=== PATIENT | female | born 1950 | race Caucasian/White ===

== ENCOUNTER 2016-06-28 10:57 | Emergency (ER) | payer BC ==
[2016-06-28 09:26] LABS: BASOPHILS 0.3 %; BASOPHILS ABSOLUTE 0.02 10/3/uL (0.0-0.16); EOSINOPHILS 1.8 %; EOSINOPHILS ABSOLUTE 0.14 10/3/uL (0.0-0.53); IMMATURE GRANULOCYTES 0.1 %; IMMATURE GRANULOCYTES ABSOLUTE 0.01 10/3/uL (0.0-0.11); MEAN CORPUSCULAR HEMOGLOB 31.2 pg (26.0-34.0); MONOCYTES 7.8 %; NEUTROPHILS ABSOLUTE 5.27 10/3/uL (2.02-8.40); PLATELET COUNT 334 10/3/uL (150-400); RED CELL COUNT 4.81 10/6/uL (4.0-5.6); WHITE BLOOD CELLS 7.7 10/3/uL (4.5-10.5)
[2016-06-28 09:27] LABS: HEMATOCRIT 43.8 % (36.0-48.0); MANUAL DIFF NO %; MEAN CORPUS HGB CONC 34.2 g/dL (32.0-36.0); MEAN CORPUSCULAR VOLUME 91.1 fL (80-100)
[2016-06-28 09:41] LABS: A/G RATIO 1.1 (0.7-1.9); ALBUMIN 3.7 G/DL (3.5-5.0); ALKALINE PHOSPHATASE 69 U/L (45-117); BUN (BLOOD UREA NITROGEN) 18 MG/DL (6-23); CHLORIDE, SERUM 111 MMOL/L (96-112); CO2 (CARBON DIOXIDE) 22 MMOL/L (24-34); CREATININE 0.77 MG/DL (0.55-1.02); GFR AFRICAN AMERICAN 95 ML/MIN (>=60); GFR NON AFRICAN AMERICAN 82 ML/MIN (>=60); GLOBULIN 3.5 G/DL (2.5-4.1); GLUCOSE, SERUM 125 MG/DL (60-99); POTASSIUM, SERUM 3.9 MMOL/L (3.5-5.3); SGOT(AST) 10 U/L (5-40); SGPT(ALT) 25 U/L (5-65); SODIUM, SERUM 141 MMOL/L (135-148); TOTAL BILIRUBIN 1.5 MG/DL (0-1.2); TOTAL PROTEIN 7.2 G/DL (6.0-8.5)
[~2016-06-28 10:57] MED LIST: ADVIL 100100 MG/5 M PO; AMB10 PO; EFFEXXR75 PO; IBU-200200 MG PO; LEVOTHYROXIN125 MCG PO; MINIVELLE T; TUMSROLL PO
== END 2016-06-28 14:00 | disposition home or self-care (01) ==
LOC: ER 10:57
PROVIDERS: Emergency Medicine
DX: R19.7 Diarrhea, unspecified (principal); Z90.49 Acquired absence of other specified parts of digestive tract; Z88.2 Allergy status to sulfonamides; Z79.899 Other long term (current) drug therapy
CPT/HCPCS: 74022; 80053; 85025; 87493; 87493-59; 96374; 99284; C9113; J2405